=== PATIENT | male | born 1955 | race Caucasian/White ===

== ENCOUNTER → 2017-03-21 | Outpatient (CLI) | payer BC ==
--- NOTE | 2017-03-21 15:16 | XCELERA REPORT ---
[address] [address] Lower Extremity Arterial Evaluation Name: NORIS COBOS Age: 61 yrs Gender: Male : 1955 Patient Status: Outpatient Patient Location: Study Date: 03/21/2017 01:47 PM Procedure: A color flow and duplex scan of the lower extremity arteries was performed bilaterally with velocity and waveform anaylsis. Ankle brachial indicies performed. Reason For Study: ULCER Ordering Physician: TYLER ORTEZ Performed By: Palomo Mitchell Measurements and Calculations Right Left GEOMETRY TUTOR PSV 108.4 84.9 cm/sec Prox PFA PSV -81.1 -98.1 cm/sec Dist SFA PSV -72.2 -72.7 cm/sec Dist Pop A PSV 81.6 68.3 cm/sec Dist KAYLEE PSV 101.8 97.0 cm/sec Dist MEDICAL DEVICE ENGINEER PSV 96.8 86.0 cm/sec Ian Pedis PSV -100.4 89.3 cm/sec Right Side Arterial Evaluation Normal velocity and triphasic waveforms noted from the Common Femoral artery to the infrageniculate vessels. 0% stenosis noted. Ankle Brachial index is 1.17. Left Side Arterial Evaluation Normal velocity and triphasic waveforms noted from the Common Femoral artery to the infrageniculate vessels. 0% stenosis noted. Ankle Brachial index is 1.08. Interpretation Summary No hemodynamically significant lesions in the bilateral lower extremities, on duplex imaging, at rest. : TYLER ORTEZ > Wil Cao
--- NOTE | 2017-03-21 15:22 | XCELERA REPORT ---
[address] [address] Lower Extremity Venous Evaluation Name: NORIS COBOS Age: 61 yrs Gender: Male : 1955 Patient Status: Outpatient Patient Location: Study Date: 03/21/2017 01:59 PM Procedure: A bilateral duplex scan of the lower extremity veins was performed. The evaluation included responses to compression and other maneuvers with patient in the supine and standing positions to assess venous insufficiency. Reason For Study: ULCER Ordering Physician: TYLER ORTEZ Performed By: Palomo Mitchell Right Sided Venous Evaluation Deep venous system evaluation shows patent veins with no obstruction or significant reflux identified. Sapheno Femoral junction: no reflux. Femoral vein reflux: no reflux. Greater Saphenous vein, Proximal thigh: reflux: 3.8 seconds, 5 mm diameter. Greater Saphenous vein, Mid thigh: reflux: 4.4 seconds. 6 mm. Greater Saphenous vein, distal thigh: reflux:no reflux. Greater Saphenous vein, Proximal below knee: reflux: no reflux No significant Perforators identified. Left Sided Venous Evaluation Deep venous system evaluation shows patent veins with significant reflux identified., 3.4 seconds reflux in the Femoral vein. 4.4 second reflux in the Popliteal vein Sapheno Femoral junction: no reflux. Greater Saphenous vein, Proximal thigh: reflux: no reflux. Greater Saphenous vein, mid thigh: reflux: no reflux. Greater Saphenous vein, Distal thigh: reflux: 4.4 seconds.5 mm. Greater Saphenous vein, Proximal below knee: reflux: 4.4 seconds.5 mm. Greater Saphenous vein, Mid below knee: reflux: none. Greater Saphenous vein, Distal below knee: reflux: :no reflux No significant Perforators identified. Interpretation Summary No duplex evidence of DVT or obstruction in the bilateral lower extremities. Reflux as noted. : TYLER ORTEZ [place]
== END ==
LOC: SP 13:22
PROVIDERS: ATTEND Nurse Practitioner Family
DX: L97.212 Non-pressure chronic ulcer of right calf with fat layer exposed (principal)
CPT/HCPCS: 93925; 93970

== ENCOUNTER → 2019-08-22 | Outpatient (CLI) | payer BC ==
[2019-08-22 13:49] LABS: ABSOLUTE EOSINOPHILS # (AUTO) 0.1 10^3/uL (0.0-0.6); ABSOLUTE LYMPHOCYTES (AUTO) 2.1 10^3/uL (0.5-4.7); ABSOLUTE MONOCYTES (AUTO) 0.7 10^3/uL (0.1-1.4); ABSOLUTE NEUT (AUTO) 4.4 10^3/uL (1.7-8.2); BASOPHILS % (AUTO) 0.7 % (0-2); EOSINOPHILS % (AUTO) 1.2 % (0-6); HEMATOCRIT 43.6 % (37.9-51.0); HEMOGLOBIN 14.5 g/dL (13.5-17.0); LYMPHOCYTES % (AUTO) 28.7 % (13-45); MEAN CORPUSCULAR HEMOGLOBIN 31.3 pg (27.0-33.4); MEAN CORPUSCULAR HGB CONC 33.2 g/dL (32.0-36.0); MEAN CORPUSCULAR VOLUME 94 fl (80-97); MONOCYTES % (AUTO) 9.6 % (3-13); PLATELET COUNT 240 10^3/uL (150-450); RED BLOOD COUNT 4.62 10^6/uL (4.35-5.55); RED CELL DISTRIBUTION WIDTH 14.9 % (11.5-14.0); SEGMENTED NEUTROPHILS % (AUTO) 59.8 % (42-78); TOTAL CELLS COUNTED % (AUTO) 100 %; WHITE BLOOD COUNT 7.3 10^3/uL (4.0-10.5)
[2019-08-22 14:13] LABS: ALBUMIN 3.9 g/dL (3.5-5.0); ALKALINE PHOSPHATASE 78 U/L (38-126); ANION GAP 8 (5-19); ASPARTATE AMINO TRANSFERASE 22 U/L (17-59); BILIRUBIN,DIRECT 0.2 mg/dL (0.0-0.4); BILIRUBIN,TOTAL 0.5 mg/dL (0.2-1.3); BLOOD UREA NITROGEN 19 mg/dL (7-20); CALCIUM 9.2 mg/dL (8.4-10.2); CARBON DIOXIDE 31 mmol/L (22-30); CHLORIDE 97 mmol/L (98-107); GLUCOSE 88 mg/dL (75-110); POTASSIUM 3.9 mmol/L (3.6-5.0); TOTAL PROTEIN 7.2 g/dL (6.3-8.2)
[2019-08-22 15:02] LABS: ERYTHROCYTE SEDIMENTATION RATE 13 mm/hr (0-20)
== END ==
LOC: WC 12:47
PROVIDERS: ATTEND Nurse Practitioner Family
DX: E11.621 Type 2 diabetes mellitus with foot ulcer (principal); L97.212 Non-pressure chronic ulcer of right calf with fat layer exposed
CPT/HCPCS: 36415; 80053; 83036; 85025; 85652; 86140

== ENCOUNTER → 2019-08-29 | Outpatient (CLI) | payer BC ==
--- NOTE | 2019-08-30 07:55 | XCELERA REPORT ---
[address] [address] Lower Extremity Arterial Evaluation Name: NORIS COBOS Age: 63 yrs Gender: Male : 1955 Patient Status: Outpatient Patient Location: Study Date: 08/29/2019 01:12 PM Procedure: A color flow and duplex scan of the lower extremity arteries was performed bilaterally with velocity and waveform anaylsis. Ankle brachial indicies performed. Reason For Study: RIGHT CALF ULCER Ordering Physician: TYLER ORTEZ Performed By: Luis Alberto Tesfaye Measurements and Calculations Right Left CHILD WELFARE MANAGER PSV 111.9 92.6 cm/sec Prox PFA PSV 77.7 61.5 cm/sec Prox SFA PSV 138.3 120.8 cm/sec Mid SFA PSV -104.8 -106.9cm/sec Dist SFA PSV -118.8 -83.5 cm/sec Prox Pop A PSV 97.0 70.3 cm/sec Mid KAYLEE PSV 107.5 cm/sec Dist KAYLEE PSV 85.9 cm/sec Dist SUPPORT SERVICES REP PSV 91.8 -80.9 cm/sec Ian Pedis PSV 77.4 80.1 cm/sec Right Side Arterial Evaluation Normal velocity and triphasic waveforms noted from the Common Femoral artery to the infrageniculate vessels . Ankle Brachial index 1.23. Left Side Arterial Evaluation Normal velocity and triphasic waveforms noted from the Common Femoral artery to the infrageniculate vessels . Ankle Brachial index 1.24. Interpretation Summary No hemodynamically significant lesions in the bilateral lower extremities, on duplex imaging, at rest. LYNDSEY's are normal, indicating no obstructive arterial disease. : TYLER ORTEZ > Wil Cao
== END ==
LOC: SP 12:43
PROVIDERS: ATTEND Nurse Practitioner Family
DX: L97.212 Non-pressure chronic ulcer of right calf with fat layer exposed (principal)
CPT/HCPCS: 93922; 93925

== ENCOUNTER 2020-01-21 14:52 | Emergency (ER) | payer BC ==
--- NOTE | 2020-01-21 15:07 | ER Document Report ---
ED Medical Screen (RME) - General Chief Complaint: Leg Swelling Stated Complaint: POSSIBLE DVT Time Seen by Provider: 01/21/20 15:02 Primary Care Provider: TYLER ORTEZ NP, HOG COOLER [Primary Care Provider] - Follow up as needed Mode of Arrival: Wheelchair Information source: Patient Notes: 64-year-old male presented to ED for DVT to the left leg. He states he had a swelling to his left leg for about the last week. He states he goes to the wound clinic for wound care on the right leg and while he was there they saw the left leg and sent him over to her the hospital for Doppler. The Doppler is positive. Patient will be seen by 1 of the providers in the back to treat his DVT in the left leg. I have greeted and performed a rapid initial assessment of this patient. A comprehensive ED assessment and evaluation of the patient, analysis of test results and completion of medical decision making process will be conducted by an additional ED providers. TRAVEL OUTSIDE OF THE [place] IN LAST 30 DAYS: No - Related Data Allergies/Adverse Reactions: No Known Allergies Allergy (Verified 01/21/20 15:02) Past Medical History - Past Medical History Cardiac Medical History: Reports: Hx Hypertension - meds since 07/28 Denies: Hx Coronary Artery Disease, Hx Heart Attack Pulmonary Medical History: Denies: Hx Asthma, Hx Bronchitis, Hx COPD, Hx Pneumonia Neurological Medical History: Denies: Hx Cerebrovascular Accident, Hx Seizures Musculoskeltal Medical History: Denies Hx Arthritis - Immunizations Hx Diphtheria, Pertussis, Tetanus Vaccination: Yes Physical Exam - Vital signs Vitals: Temp Pulse Resp BP Pulse Ox 97.9 F 56 L 16 109/70 98 01/21/20 14:55 01/21/20 14:55 01/21/20 14:55 01/21/20 14:55 01/21/20 14:55 Course - Vital Signs Vital signs: Temp Pulse Resp BP Pulse Ox 97.9 F 56 L 16 109/70 98 01/21/20 14:55 01/21/20 14:55 01/21/20 14:55 01/21/20 14:55 01/21/20 14:55 Doctor's Discharge - Discharge Referrals: TYLER ORTEZ NP, HOG COOLER [Primary Care Provider] - Follow up as needed
[2020-01-21 15:47] LABS: ABSOLUTE EOSINOPHILS # (AUTO) 0.1 10^3/uL (0.0-0.6); ABSOLUTE LYMPHOCYTES (AUTO) 2.1 10^3/uL (0.5-4.7); ABSOLUTE MONOCYTES (AUTO) 0.6 10^3/uL (0.1-1.4); ABSOLUTE NEUT (AUTO) 4.9 10^3/uL (1.7-8.2); BASOPHILS % (AUTO) 0.5 % (0-2); EOSINOPHILS % (AUTO) 1.6 % (0-6); HEMOGLOBIN 14.9 g/dL (13.5-17.0); LYMPHOCYTES % (AUTO) 27.2 % (13-45); MEAN CORPUSCULAR HEMOGLOBIN 32.6 pg (27.0-33.4); MEAN CORPUSCULAR HGB CONC 33.7 g/dL (32.0-36.0); MEAN CORPUSCULAR VOLUME 97 fl (80-97); MONOCYTES % (AUTO) 8.1 % (3-13); PLATELET COUNT 265 10^3/uL (150-450); RED BLOOD COUNT 4.55 10^6/uL (4.35-5.55); RED CELL DISTRIBUTION WIDTH 14.5 % (11.5-14.0); SEGMENTED NEUTROPHILS % (AUTO) 62.6 % (42-78); TOTAL CELLS COUNTED % (AUTO) 100 %; WHITE BLOOD COUNT 7.9 10^3/uL (4.0-10.5)
[2020-01-21 16:01] LABS: INTERNATIONAL RATION (INR) 1.04; PROTHROMBIN TIME 13.6 SEC (11.4-15.4)
[2020-01-21 16:02] LABS: PARTIAL THROMBOPLASTIN TIME 31.7 SEC (23.5-35.8)
[2020-01-21 16:06] LABS: ALBUMIN 3.9 g/dL (3.5-5.0); ALKALINE PHOSPHATASE 73 U/L (38-126); ANION GAP 7 (5-19); ASPARTATE AMINO TRANSFERASE 23 U/L (17-59); BILIRUBIN,TOTAL 0.6 mg/dL (0.2-1.3); BLOOD UREA NITROGEN 18 mg/dL (7-20); CALCIUM 9.3 mg/dL (8.4-10.2); CARBON DIOXIDE 30 mmol/L (22-30); CHLORIDE 100 mmol/L (98-107); GLUCOSE 97 mg/dL (75-110); POTASSIUM 4.7 mmol/L (3.6-5.0)
--- NOTE | 2020-01-21 17:38 | ER Document Report ---
ED General - General Chief Complaint: Leg Swelling Stated Complaint: POSSIBLE DVT Time Seen by Provider: 01/21/20 15:02 Primary Care Provider: TYLER ORTEZ COT ASSEMBLER, COT ASSEMBLER [NURSE PRACTITIONER] - Follow up as needed Mode of Arrival: Wheelchair TRAVEL OUTSIDE OF THE [place] IN LAST 30 DAYS: No - HPI Notes: Patient is a 64-year-old male with a history of hypertension who presents complaint of having left leg swelling and soreness for the past week. His wound clinic provider ordered an ultrasound of his left leg and was sent here for evaluation due to finding DVT. Patient states that he is otherwise feeling well. He is able to eat and drink without difficulty. He is urinating normally and having normal bowel movements. He has not noticed any active bleeding anywhere. No melena or hematochezia. No hematuria. Denies any prolonged immobilization, distance travel, recent surgery/trauma, personal cancer history, hormone use, or previous DVT/PE. Denies any headache, fever, neck pain, URI, sore throat, chest pain, palpitations, syncope, cough, shortness of breath, wheeze, dyspnea, abdominal pain, nausea/vomiting/diarrhea, urinary retention, dysuria, hematuria, loss of control of bowel or bladder, numbness/tingling, saddle anesthesia, muscle paralysis/weakness, or rash. - Related Data Allergies/Adverse Reactions: No Known Allergies Allergy (Verified 01/21/20 15:02) Past Medical History - General Information source: Patient - Social History Smoking Status: Current Every Day Smoker Drug Abuse: Marijuana Family History: Reviewed & Not Pertinent Patient has suicidal ideation: No Patient has homicidal ideation: No - Past Medical History Cardiac Medical History: Reports: Hx Hypertension - meds since 07/28 Denies: Hx Coronary Artery Disease, Hx Heart Attack Pulmonary Medical History: Denies: Hx Asthma, Hx Bronchitis, Hx COPD, Hx Pneumonia Neurological Medical History: Denies: Hx Cerebrovascular Accident, Hx Seizures Musculoskeletal Medical History: Denies Hx Arthritis - Immunizations Hx Diphtheria, Pertussis, Tetanus Vaccination: Yes Review of Systems - Review of Systems -: Yes All other systems reviewed and negative Physical Exam - Vital signs Vitals: Temp Pulse Resp BP Pulse Ox 97.9 F 56 L 16 109/70 98 01/21/20 14:55 01/21/20 14:55 01/21/20 14:55 01/21/20 14:55 01/21/20 14:55 - Notes Notes: PHYSICAL EXAMINATION: GENERAL: Well-appearing, well-nourished and in no acute distress. LUNGS: Breath sounds clear to auscultation bilaterally and equal. No wheezes rales or rhonchi. HEART: Regular rate and rhythm without murmurs, rubs, gallops. Musculoskeletal: FROM to passive/active. Strength 5+/5. Extremities: 2-3+ pitting LLE. Peripheral pulses 1+. Capillary refill less than 3 seconds. NEUROLOGICAL: Normal speech, normal gait. Normal sensory, motor exams PSYCH: Normal mood, normal affect. SKIN: Warm, Dry, normal turgor, no rashes or lesions noted. Course - Re-evaluation Re-evalutation: 01/21/20 17:[address] Atkins. We will review basic labs and send home thereafter on Xarelto. 01/21/20 17:44 Patient is an afebrile, well-hydrated, 64-year-old male who presents with a DVT to his left lower extremity to the femoral and popliteal veins. Vitals are acceptable without significant tachycardia, tachypnea, hypoxia. PE is otherwise unremarkable. Patient is nontoxic-appearing is tolerating p.o. without difficulty. He does not have any chest pain, shortness breath, or dyspnea on exertion. Labs acceptable. Low suspicion for any other systemic or emergent condition at this time. Patient to recheck with his family doctor/locker operator in the next week. Return to the ED with any other worsening/concerning symptoms. Patient is in agreement. - Vital Signs Vital signs: Temp Pulse Resp BP Pulse Ox 97.9 F 56 L 16 109/70 98 01/21/20 14:55 01/21/20 14:55 01/21/20 14:55 01/21/20 14:55 01/21/20 14:55 - Laboratory Result Diagrams: 01/21/20 15:35 01/21/20 15:35 Laboratory results interpreted by me: 01/21/20 15:35 RDW 14.5 H Discharge - Discharge Clinical Impression: Left leg DVT Qualifiers: Affected thrombotic vein of extremity: femoral Chronicity: acute Qualified Code(s): I82.412 - Acute embolism and thrombosis of left femoral vein Condition: Stable Disposition: HOME, SELF-CARE Instructions: DVT Outpatient Treatment ([facility]) Additional Instructions: Rest, Compression, Elevation Take Xarelto as directed F/u with your PCP in 3-5 days for a recheck Schedule appointment with hematology Return to the ED with any worsening symptoms and/or development of fever, headache, chest pain, palpitations, syncope, shortness of breath, trouble breathing, abdominal pain, n/v/d, muscle weakness/paralysis, numbness/tingling, swelling, redness, or other worsening symptoms that are concerning to you. Prescriptions: Rivaroxaban [Xarelto] 1 each PO ASDIR PRN #1 [id number] PRN Reason: Referrals: BARRY ALSTON MD [ACTIVE STAFF] - Follow up in 1 week TYLER ORTEZ NP, COT ASSEMBLER [NURSE PRACTITIONER] - Follow up in 3-5 days
[2020-01-21 17:57] VITALS: BP 126/62
== END 2020-01-21 17:57 | disposition home or self-care (01) ==
LOC: ER 14:52
DX: I82.412 Acute embolism and thrombosis of left femoral vein (principal); I82.432 Acute embolism and thrombosis of left popliteal vein; I10 Essential (primary) hypertension; F17.200 Nicotine dependence, unspecified, uncomplicated; F12.10 Cannabis abuse, uncomplicated
CPT/HCPCS: 36415; 80053; 85025; 85610; 85730; 99284

== ENCOUNTER → 2020-01-21 | Outpatient (CLI) | payer BC ==
--- NOTE | 2020-01-21 15:38 | RADIOLOGY REPORT (SQ) ---
EXAM DESCRIPTION: VENOUS UNILATERAL LOWER COMPLETED DATE/TIME: 01/21/2020 3:06 pm REASON FOR STUDY: LLE PAIN/SWELLING COMPARISON: None. TECHNIQUE: Dynamic and static galdamez scale and color images acquired of the left leg venous system. Se lected spectral images acquired with additional compression and augmentation maneuvers. The contralat eral common femoral vein and saphenofemoral junction were also imaged. Images stored on PACS. LIMITATIONS: None. FINDINGS: COMMON FEMORAL: Normal phasicity, compression and augmentation. No visualized echogenic ma terial on galdamez scale. No defects on color images. FEMORAL: Acute thrombus in the mid and distal vessel. POPLITEAL: Acute thrombus. CALF VESSELS: Normal compression, augmentation. No visualized echogenic material on galdamez scale. No de fects on color images. GSV and SSV: Normal compression, augmentation. No visualized echogenic material on galdamez scale. No def ects on color images. ANY DEEP VENOUS INSUFFICIENCY: Not evaluated. ANY EVIDENCE OF POPLITEAL CYST: No. OTHER: No other significant finding. CONTRALATERAL COMMON FEMORAL VEIN AND SAPHENOFEMORAL JUNCTION: Normal phasicity, compression and augmentation. No visualized echogenic material on galdamez scale. No de fects on color images. IMPRESSION: THROMBUS IN THE FEMORAL AND POPLITEAL VEIN. COMMENT: Preliminary report was called by the technologist to the referring clinician's office at t he time of the exam. TECHNICAL DOCUMENTATION: JOB ID: [id number] 2010 [employer]- All Rights Reserved Reading location - IP/workstation name: [email or web address]
== END ==
LOC: SP 13:54
PROVIDERS: ATTEND Nurse Practitioner Family
DX: I82.432 Acute embolism and thrombosis of left popliteal vein (principal); I82.412 Acute embolism and thrombosis of left femoral vein; I87.311 Chronic venous hypertension (idiopathic) with ulcer of right lower extremity; L97.212 Non-pressure chronic ulcer of right calf with fat layer exposed
CPT/HCPCS: 93971